=== PATIENT | male | born 1980 | race Two or more races ===

== ENCOUNTER 2018-08-17 11:38 | Emergency (ER) | payer OTHER ==
[~2018-08-17] VITALS: Ht 170.2 cm; Wt 87.1 kg
== END 2018-08-17 13:46 | disposition home or self-care (01) ==
LOC: ER 11:38
DX: S01.01XA Laceration without foreign body of scalp, initial encounter (principal); W45.8XXA Other foreign body or object entering through skin, initial encounter; Y93.89 Activity, other specified; Y92.098 Other place in other non-institutional residence as the place of occurrence of the external cause; Y99.8 Other external cause status

== ENCOUNTER 2018-08-26 08:33 | Emergency (ER) | payer OTHER ==
[~2018-08-26] VITALS: Ht 170.2 cm; Wt 82.6 kg
== END 2018-08-26 10:54 | disposition home or self-care (01) ==
LOC: ER 08:33
DX: Z48.02 Encounter for removal of sutures (principal)

== ENCOUNTER 2020-12-23 11:21 | Emergency (ER) | payer OTHER ==
[~2020-12-23] VITALS: Ht 175.3 cm; Wt 68.0 kg
[2020-12-23] MEDS ORDERED: KETO10TA2 PO (14:13)
[2020-12-23] MEDS ORDERED: NORFLEX100MG PO (14:13)
== END 2020-12-23 14:16 | disposition home or self-care (01) ==
LOC: ER 11:21
DX: R07.89 Other chest pain (principal); Z03.818 Encounter for observation for suspected exposure to other biological agents ruled out

== ENCOUNTER 2020-12-31 11:14 | Outpatient (CLI) | payer OTHER ==
[~2020-12-31 11:14] MED LIST: KETO10TA2 PO; NORFLEX100MG PO
== END 2020-12-31 11:30 ==
LOC: SONOGRAMA 11:14
DX: N39.8 Other specified disorders of urinary system (principal); Z12.5 Encounter for screening for malignant neoplasm of prostate; Z11.3 Encounter for screening for infections with a predominantly sexual mode of transmission; R10.9 Unspecified abdominal pain; K21.9 Gastro-esophageal reflux disease without esophagitis; Z13.220 Encounter for screening for lipoid disorders; Z13.1 Encounter for screening for diabetes mellitus; Z13.228 Encounter for screening for other metabolic disorders

== ENCOUNTER 2021-01-16 10:20 | Outpatient (CLI) | payer OTHER | END 2021-01-16 10:31 | disposition home or self-care (01) | LOC: SONOGRAMA 10:20 | PROVIDERS: ATTEND General Practice | DX: R94.4 Abnormal results of kidney function studies (principal); D64.89 Other specified anemias; N22 Calculus of urinary tract in diseases classified elsewhere; E78.49 Other hyperlipidemia ==

== ENCOUNTER 2022-10-10 08:34 | Emergency (ER) | payer OTHER ==
[~2022-10-10] VITALS: Ht 170.2 cm; Wt 87.1 kg
[2022-10-10] MEDS ORDERED: PEPCID AC20 MG PO (14:24)
[2022-10-10] MEDS ORDERED: LEVSIN/SL0.125 MG SL (14:24)
== END 2022-10-10 14:42 | disposition home or self-care (01) ==
LOC: ER 08:34
DX: R10.9 Unspecified abdominal pain (principal); Z20.822 Contact with and (suspected) exposure to COVID-19

== ENCOUNTER 2024-06-08 14:22 | Emergency (ER) | payer OTHER ==
[~2024-06-08] VITALS: Ht 172.7 cm; Wt 85.7 kg
[~2024-06-08 14:22] MED LIST changes: +LEVSIN/SL0.125 MG SL; +PEPCID AC20 MG PO
[2024-06-08] MEDS ORDERED: KETOROLAC TROMETHAMINE 60 MG VIAL IM ONE ×2 (16:30→16:46)
[2024-06-08] MEDS ORDERED: ORPHENADRINE CITRATE 30 MG/ML AMPUL IM ONE (16:30)
[2024-06-08] MEDS ORDERED: ORPHENADRINE CITRATE 30 MG/ML AMPUL ONE (16:46)
[2024-06-08] MEDS ORDERED: KETO10TA2 PO (18:45)
[2024-06-08] MEDS ORDERED: NORFLEX100MG PO (18:45)
== END 2024-06-08 18:55 | disposition home or self-care (01) ==
LOC: ER 14:23
DX: M79.642 Pain in left hand (principal)